=== PATIENT | male | born 1940 | race Caucasian/White ===

== ENCOUNTER → 2018-07-11 | Outpatient (CLI) | payer OTHER ==
[~2018-07-11] MED LIST: AMLODIPINE BESY10 MG PO; BRINTELLIX10 MG PO; CENTRUM SILVER1 EAC2 PO; FLOMAX0.4 MG PO; GABAPENTIN 100100 MG PO; INDAPAMIDE2.5 MG PO; LISINOPRIL20 MG PO; MELATONIN5 M1 PO
== END | disposition home or self-care (01) ==
LOC: CANPRESDC → OR 05:39 → TBA 05:39 → PAC 07:00 → OR 07:53 → TBA 14:27 → CANCEL 14:27 → OR 14:27 → EDSTATUS 14:59
DX: C44.1192 Basal cell carcinoma of skin of left lower eyelid, including canthus (principal); Z53.8 Procedure and treatment not carried out for other reasons; I10 Essential (primary) hypertension; F32.9 Major depressive disorder, single episode, unspecified; F41.9 Anxiety disorder, unspecified; Z85.46 Personal history of malignant neoplasm of prostate; Z87.891 Personal history of nicotine dependence; Z98.890 Other specified postprocedural states; Z79.899 Other long term (current) drug therapy

== ENCOUNTER 2018-08-01 05:39 | Day surgery (SDC) | payer OTHER ==
[~2018-08-01] VITALS: Ht 180.3 cm; Wt 93.0 kg
--- NOTE | ~2018-08-01 | O ---
[facility] [place] [address] OPERATIVE REPORT Name: SIMONLESLIE Room #: 150-5 [facility]..#: [id number] Admission: 08/01/18 ������������������ Attend Phys: Nile Pink MD Discharge: ������������������ Date of : 42 Report #: [id number] THIS REPORT FOR: //name// CC: HARSHAL Pink DATE OF SERVICE: 08/01/2018 PREOPERATIVE DIAGNOSIS: Basal cell carcinoma of left lower lid lateral canthus and cheek. POSTOPERATIVE DIAGNOSIS: Basal cell carcinoma of left lower lid lateral canthus and cheek. PROCEDURE: Excision of basal cell carcinoma of left lower lid lateral canthus and cheek with musculocutaneous flap repair of defect based on the temporalis muscle. SURGEON: Nile Pink M.D. FUNDRAISING DIRECTOR: None. ANESTHESIA: MAC. COMPLICATIONS: None. INDICATIONS FOR SURGERY: This pleasant 78-year-old gentleman has a relatively atypical appearing basal cell carcinoma that has been biopsy proven involving his lateral canthus, his lower lid and his cheek. The lesion does not look like a classic basal cell carcinoma and its margins are particularly ill-defined. He presents today for excision of this lesion with frozen sections and subsequent repair of that ensuing defect. Informed consent was obtained to include but not limited to the potential risk for loss of vision, bleeding, infection, failure to improve the problem, the potential need for further surgery or treatment. DESCRIPTION OF PROCEDURE: The patient was taken to the operating room where 2% Xylocaine with epinephrine mixed with equal parts of 0.75% Marcaine with Wydase was administered transcutaneously and transconjunctivally to the left lower lid, the left lateral canthus, the infratemporal fossa, the cheek and the lip on the left side of his face. The patient was subsequently prepped and draped in the usual sterile fashion. A fine tip skin marking pen was then utilized to outline the lesion in its entirety, starting from the lid margin. This involved tissue that went all the way down to the superior border of his lip across the malar eminence. The incisions were then made perpendicularly across the eyelid margin [address] [address] OPERATIVE REPORT Name: LESLIE SIMON Room #: 150-5 [facility] M..#: [id number] Admission: 08/01/18 ������������������ Attend Phys: Nile Pink MD Discharge: ������������������ Date of : 41 Report #: [id number] and drawn down to a point above his lip. Hemostasis was achieved with diligent pinpoint monopolar cautery, relatively brisk bleeding ensued with an incision of that size. The specimen was then oriented on a drawing for the waiting pathologist. She snap froze that specimen and returned and advising that she was not confident that we were clear medially or laterally. She requested an entire recut of the entire wound. Several additional millimeters were then taken medially across the stump of the lid down into the cheek and then to the upper portion of the lip. An additional similar piece of tissue was then taken laterally, which took out the entire lateral canthus and extended back into the temporalis fossa. The specimens were then oriented on a drawing for the pathologist as hemostasis was once again re-achieved in the field. She snap froze that tissue and examined it under the microscope and at this point in time, felt that our margins were clear. The defect was much larger than what it originally been anticipated, although this was within the realm of possibility and discussed with the patient. The decision was made to use a musculocutaneous flap based on the temporalis muscle rather than a Martino graft because of the extension of the wound down into the cheek and lip. The area was then widely undermined laterally into the temporalis muscle and the flap developed. The relaxing incision was made supratemporally to allow the muscle to be rotated inferomedially. Hemostasis was then re-achieved. The musculocutaneous flap was then advanced and secured with multiple interrupted layers of 5-0 Vicryl suture to ensure they took tension off the more superficial closure. The tarsal plate was reapproximated more superiorly with 5-0 Vicryl sutures to the temporalis muscle laterally. The eyelid margin was reapproximated with interrupted 7-0 Vicryl sutures, which sylvie it out to the lateral most portion of the lid. The skin was then closed with interrupted Vicryl sutures buried and then 6-0 plain gut sutures more superficially. The wound was then cleaned and dressed with erythromycin ophthalmic ointment. The patient subsequently transported to the recovery area having tolerated the procedure well with no anesthetic or operative complications being noted. ��������������������������������������������� ���������������������������������������� By: ��������������������������������������������� 0921 1211 Nile Pink MD /nt
[2018-08-01 07:26] VITALS: BP 145/75
--- NOTE | 2018-08-02 16:06 | PATH ---
[facility] [place] [address] PATHOLOGY RPT PROCEDURE Name: LESLIE SIMON Room #: DEP [facility]..#: [id number] ������������������ Admission: 08/01/18 ������������������ Date of : 41 Discharge: 08/01/18 Report #: [id number] Path Case #: [id number] [facility] Accession Number: [id number] . 01 Material submitted: . PART A: LEFT LOWER LID BCCA PART B: LEFT LOWER LID MEDIAL MARGIN PART C: LEFT LOWER LID LATERAL MARGIN . 01 Clinical history: . BCCA left lower lid . 02 Diagnosis: A. Skin, left lower lid BCCA, excision: - BASAL CELL CARCINOMA X2, ONE AT SUPERIOR END AND THE OTHER AT THE INFERIOR END. - Margins of resection free of malignancy. . B. Skin, medial margin, excision: - Negative for malignancy. - Seborrheic keratosis. . C. Skin, lateral margin, excision: - Negative for malignancy. - Actinic keratosis. (IUV:erum; 08/02/2018) QMS/08/02/2018 . 02 Comment: The original excision "left lower lid BCCA" showed basal cell carcinoma with retraction artifact towards the both ends of the specimen. For this reason, the medial as well as lateral margins on the frozen section slides appeared artifactually positive (false positive). The margins are; however, negative and the same was discussed with Dr. Pink at the time of the surgery, intraoperatively on 08/01/2018. . (IUV:erum; 08/02/2018) . 02 Electronically signed: . Aleida Man MD, Pathologist NPI- [id number] . 01 Gross description: . A. Received fresh from the OR labeled with the patient's name, and "left lower lid basal cell carcinoma" and consists of a thin strip of skin measuring approximately 2.9 x 0.5 x 0.5 cm. The superior to lateral to inferior margin is inked black, the inferior half of the medial margin is [address] [address] PATHOLOGY RPT PROCEDURE Name: LESLIE SIMON Room #: DEP [facility].#: [id number] ������������������ Admission: 08/01/18 ������������������ Date of : 41 Discharge: 08/01/18 Report #: [id number] Path Case #: [id number] inked blue and the superior half of the medial margin is inked green. The superior end of the specimen as well as the deep margin are tagged with an orange ink. At this point the specimen is serially sectioned into multiple fragments and submitted for frozen section entirely as FSA1, this is subsequently submitted for permanent sections as A1. . B. Received fresh from the OR labeled with the patient's name, and "medial margin" and consists of a 2.6 x 0.3 x 0.3 cm oriented strip of skin with the true margin facing up. The en face margin is submitted for frozen section as FSB1, this is subsequently submitted for permanent sections as B1. . C. Received fresh from the OR labeled with the patient's name, and "lateral margin" and consists of a thin strip of skin measuring approximately 2.9 x 0.3 x 0.3 cm. The specimen is oriented with the en face (true margin) facing up. This en face margin is submitted for frozen section as FSC1, subsequently submitted for permanent sections as C1. (IUV:pit 08/01/2018) . . FROZEN SECTION DIAGNOSIS: (Dr. Aleida Man) . FSA1: Skin, left lower lid BCCA, excision: - Two squamoproliferative lesions identified, one at the superior and one at the inferior end present at medial and lateral margins. . FSB1: Skin, medial margin, excision: - Negative for invasive carcinoma on frozen section slides (en face margin). . FSC1: Skin, lateral margin, excision: - Negative for invasive carcinoma on FS slide (en face margin). . . These findings are discussed with Dr. Nile Pink in OR 6 at [facility] and a written report is placed in the patient's chart. . (IUV:pit 08/01/2018) . Frozen section performed at [facility], [address] [place] [address] , [place] [address]. /QTP . 02 Pathologist provided ICD-10: C44.1192, L82.1, L57.0 . 02 CPT . [address] [address] PATHOLOGY RPT PROCEDURE Name: LESLIE SIMON Room #: DEP [facility].#: [id number] ������������������ Admission: 08/01/18 ������������������ Date of : 42 Discharge: 08/01/18 Report #: [id number] Path Case #: [id number] Specimen Comment: A courtesy copy of this report has been sent to Specimen Comment: [phone], . Specimen Comment: Report sent to / DR RICHARD Performed at: [address] [facility] [address], [place] [id number] MD Michel Davies MD Phone: [phone] Performed at: [address] [facility] [address] [id number] MD Aleida Man MD Phone: [phone]
== END 2018-08-01 10:05 | disposition home or self-care (01) ==
LOC: OR 05:39 → TBA 05:40 → OR 08:46
DX: C44.1192 Basal cell carcinoma of skin of left lower eyelid, including canthus (principal); F41.9 Anxiety disorder, unspecified; F32.9 Major depressive disorder, single episode, unspecified; Z87.891 Personal history of nicotine dependence; I10 Essential (primary) hypertension; Z98.890 Other specified postprocedural states; Z85.46 Personal history of malignant neoplasm of prostate
CPT/HCPCS: 50010; 50101; 50386; 50398; 51636; 56528; 56531; 62110; 62850; 70005

== ENCOUNTER 2021-02-28 18:23 | Inpatient (IN) | payer OTHER ==
[~2021-02-28] VITALS: Ht 182.9 cm; Wt 88.7 kg
--- NOTE | ~2021-02-28 | EMS ---
[place] [address] EMS Patient Care Report Name: LESLIE SIMON Room #: REG DIANA Alfaro#: [id number] Admission: 02/28/21 Attend Phys: Discharge: Date of : 41 Report #: [id number] THIS REPORT FOR: //name// Report Transmitted: 02/28/2021 18:22 EMS Care Summary [place], [place]/[facility] Incident [id number] @ 02/28/2021 17:47 Incident Location [address] [place] [address] Patient LESLIE SIMON Male, 80 Years 1940 Patient Address [address] [place] [address] Patient History Bone Cancer,Prostate Cancer, Patient Allergies No known allergies, Patient Medications Unknown, Chief Complaint altered mental status Disposition Transported No Lights/[place] Dispatch Reason Sick Person Transported To [facility] Narrative M36 dispatched on a sick person. M36 arrived to home to find PT laying supine on kitchen floor with P37 at PT side. PT stated right hip pain as chief complaint. PT answered A&O questions correctly with pause. PT pelvis stable upon palpation, but right leg shortened and externally [place] [address] EMS Patient Care Report Name: LESLIE SIMON Room #: REG DIANA Alfaro#: [id number] Admission: 02/28/21 Attend Phys: Discharge: Date of : 41 Report #: [id number] [place] Scraper Hand SEPARATOR OPERATOR by P37. PT carried out of home and placed on stretcher by fire and EMS. PT secured with seatbelts. PT provided surgical mask. Calling republican stated he had been unable to reach PT for two whole days. PT stated he had been "scooting around the house on my butt since Sunday." PT stated [facility] PT stated "they had two events recently and I think it was rabbit racing." PT denied pain outside of right hip. PT stated "I have been having weird dreams and I don't know if it is from my brother passing away two weeks ago or not." PT vitals monitored during transport. PT report given. PT moved to hospital bed via two person sheet lift by EMS. PT care and belongings transferred to ER staff at [facility] without incident. M36 placed back in service. Initial Vitals @18:13P: 90,R: 18,BP: 114/62,Pain: 4/10,GCS: 15,SpO2: 98,Revised Trauma: 12, @18:19P: 88,R: 14,BP: 118/72,Pain: 4/10,GCS: 15,CO: 0,SpO2: 96,Revised Trauma: 12, @17:59P: 92,R: 16,BP: 156/76,Pain: 4/10,GCS: 15,Glucose: 107,SpO2: 95,Revised Trauma: 12, Assessments @18:05MENTAL:Person Oriented,Place Oriented,Time Oriented,SKIN:Pale,HEENT:Head/Face: Drainage,LUNG SOUNDS:ABDOMEN:PELVIS//GI:Pelvis Other,EXTREMITIES:Right Leg: Other,PULSE:Radial: 2+ Normal,NEURO:Other, Impression Injury of Hip Procedures @17:55 ALS Assessment Response: UnchangedSucceeded @17:55 Stretcher Response: Unchanged @18:08 IV Therapy - Saline Lock 0cc (20 ga) Site: Hand-Left Response: UnchangedFailed Timeline 17:44,Call Received 17:44,Dispatch Notified 17:47,Dispatched 17:47,En Route 17:54,On Scene 17:55,At Patient 17:55,ALS Assessment,Response: UnchangedSucceeded, 17:55,Stretcher,Response: Unchanged 17:59,BP: 156/76 M,PULSE: 92,RR: 16 R,SPO2: 95 Ox,ETCO2: ,B,PAIN: 4,GCS: [address] [address] EMS Patient Care Report Name: LESLIE SIMON Room #: REG [facility].#: [id number] Admission: 02/28/21 Attend Phys: Discharge: Date of : 42 Report #: [id number] 15, 18:08,IV Therapy - Saline Lock 0cc 20 ga Site: Hand-Left,Response: UnchangedFailed, 18:12,Depart Scene 18:13,BP: 114/62 M,PULSE: 90,RR: 18 R,SPO2: 98 Ox,ETCO2: ,BG: ,PAIN: 4,GCS: 15, 18:19,BP: 118/72 M,PULSE: 88,RR: 14 R,SPO2: 96 Ox,ETCO2: ,BG: ,PAIN: 4,GCS: 15, 18:26,At Destination 18:45,Call Closed Disclaimer v1.1 Copyright 2020 [employer] This EMS Care Summary contains data elements from the applicable legal record (which may be displayed differently). It is designed to provide pertinent information for the following purposes: continuity of care, clinical quality, and state data reporting. The complete legal record is available to ED staff and administrators of the receiving hospital in [employer] Patient Tracker. All data is provided "as is."
[2021-02-28 18:35] VITALS: BP 118/61
[2021-02-28 19:30] LABS: ABSOLUTE NEUTROPHILS 5.5 thou/uL (1.4-8.2); BASOPHILS 0.4 % (0.0-2.0); EOSINOPHILS 0.7 % (0.0-3.0); HEMATOCRIT 36.4 % (42.0-52.0); LYMPHOCYTES 7.7 % (24.0-44.0); MCH 28.5 pg (26.0-34.0); MCHC 33.1 g/dL (28.0-37.0); MCV 86.1 fL (80.0-100.0); PLATELET COUNT 150 thou/uL (150-400); POLYS 82.2 % (36.0-66.0); RBC 4.23 mil/uL (4.50-6.00); RDW 17.3 % (10.5-14.5); WBC 6.7 thou/uL (4.0-11.0)
[2021-02-28 19:48] LABS: CALCIUM 9.5 mg/dL (8.5-10.1); CREATININE 0.9 mg/dL (0.7-1.3); POTASSIUM 3.4 mmol/L (3.5-5.1)
[2021-02-28 20:10] LABS: ALBUMIN 3.7 g/dL (3.4-5.0); TOTAL BILIRUBIN 1.3 mg/dL (0.2-1.0)
[2021-02-28 20:42] LABS: URINE BILIRUBIN NEGATIVE (Negative); URINE BLOOD 3+ (Negative); URINE CLARITY CLEAR; URINE COLOR YELLOW; URINE GLUCOSE-RANDOM* NEGATIVE (Negative); URINE KETONES 1+ (Negative); URINE LEUKOCYTES-REFLEX NEGATIVE (Negative); URINE NITRITE-REFLEX NEGATIVE (Negative); URINE PROTEIN (DIPSTICK) TRACE (Negative); URINE SPECIFIC GRAVITY 1.025 (1.005-1.035); URINE UROBILINOGEN 0.2 E.U./dl (0.2-1.0)
[2021-02-28 21:15] LABS: CASTS None Seen /LPF (None Seen); SQUAMOUS 0-3 Few /LPF (0-3)
[2021-02-28 21:16] LABS: BACTERIA-REFLEX 1-9 Few /HPF (None Seen); CRYSTALS None Seen /LPF (None Seen); URINE RBC >20 Many /HPF (NONE SEEN); URINE WBC-REFLEX 0-5 Rare /HPF (0-5)
[2021-02-28 22:11] VITALS: BP 164/69
[2021-02-28 23:16] VITALS: BP 177/82
--- NOTE | 2021-03-01 05:36 | NUR ---
new admission d/t fall at home. patient lives alone. patient aox2 confused and forgetfyl. patient was not able to participate with assessment d/t cognitive status. pain controlled this shift. fall precaution in place. patient in bed asleep at this time breathing regular and unlaboured.
[2021-03-01 05:47] LABS: ALBUMIN 3.1 g/dL (3.4-5.0); CALCIUM 8.5 mg/dL (8.5-10.1); CREATININE 0.7 mg/dL (0.7-1.3); DIRECT BILIRUBIN 0.2 mg/dL (<0.1-0.2); POTASSIUM 3.3 mmol/L (3.5-5.1); TOTAL BILIRUBIN 0.9 mg/dL (0.2-1.0); TOTAL PROTEIN 5.4 g/dL (6.4-8.2)
[2021-03-01 05:49] LABS: HEMOGLOBIN 10.9 gm/dL (14.0-18.0)
[2021-03-01 05:51] LABS: HEMATOCRIT 31.4 % (42.0-52.0); MCH 29.9 pg (26.0-34.0); MCHC 34.7 g/dL (28.0-37.0); MCV 86.1 fL (80.0-100.0); RBC 3.65 mil/uL (4.50-6.00); RDW 17.5 % (10.5-14.5); WBC 10.4 thou/uL (4.0-11.0)
[2021-03-01 10:23] LABS: OBSERVED RETIC COUNT 2.19 % (0.6-2.6)
[2021-03-01 10:26] LABS: % SATURATION 17 % (20-39); IRON 38 ug/dL (65-175); TIBC 225 ug/dL (250-450)
[2021-03-01 10:53] LABS: FOLIC ACID 15.3 ng/mL (8.6-58.9)
--- NOTE | 2021-03-01 16:59 | NUR ---
PT ADMITTED RELATED TO RHABDOMYLYSIS, FALL, LACTIC ACIDOSIS. CM REVIEWED CHART AND SPOKE WITH CARE TEAM. CM MET WITH PT AND NEPHEW BILLIE SIMON AT BEDSIDE THIS DAY. PT DIDN'T PARTICIPATE IN ASSESSMENT UNTIL HIS CAT WAS SPOKEN ABOUT THEN HE PERKED UP. NEPHEW INDICATED THAT PT RESIDES IN A RANCH STYLE HOUSE ALONE WITH 2 STEPS TO ENTER THROUGH GARAGE AND 2 FROM FRONT. PT HAD USED A FWW TO ASSIST WITH MOBILITY TIMBER SELECTOR. NEPHEW INDICATED NO PRIOR HH HX. PT SEEN AT [facility] PCP DR. HILARY VAZQUEZ. NO SNF HX. PT'S NEPHEW AND KAYLYNN RUIZ INVOLVED . CM PROVIDED SNF LIST FOR REVIEW FOR LIKELY POST ACUTE CARE STAY. CM FOLLOWING REGARDING DC PLANNING.
[2021-03-01 19:41] VITALS: BP 143/75
--- NOTE | 2021-03-01 20:28 | NUR ---
Assumed pt care this am vs stable, pt is alert to self. Went down for a CT. Complained of pain in the buttocks, managed with medications, was asleep for most of the shift. Pt is a max assists and does not follow instructions. Niece and nephew came to visit, as per niece nephew claims to have DPOA documentation, requested for a copy. FC in place draining dark yellow with a tinge of red. POC followed, pain managed with medications as per emar. Endorsed to the night nurse, small freq feedings recommended.
--- NOTE | 2021-03-02 05:14 | NUR ---
CARE ASSUMED AT 1900 PATIENT WAS IN BED ASLEEP,PATIENT ENCOURAGED TO EAT DINNER AND PATIENT ATE 50%.PATIENT AOX1 CONFUSED AND FORGETFUL. PATIENT WAS AGITATED THIS SHIFT AT AROUND 0100, AND DELUSIONAL,CALLED DRUGLESS PHYSICIAN NEW ORDER OF HALDOL GIVEN. FALL PRECAUTION IN PLACE. PATIENT IN BED ASLEEP AT THIS TIME BREATHING REGULAR AND UNLABOURED.
[2021-03-02 05:35] VITALS: BP 159/61
--- NOTE | 2021-03-02 07:13 | HC ---
[facility] [place] [address] [place] [address] CONSULTATION Name: LESLIE SIMON Room #: 461-P ADM IN M.R.#: [id number] Admission: 02/28/21 Attend Phys: Peter Momin MD Discharge: Date of : 41 Report #: [id number] THIS REPORT FOR: cc: Tyson Montiel MD, Thomas P. MD McKittrick, Richard James MD ~ cc: Loretta Cho MD, Tyson Montiel MD REASON FOR CONSULTATION: Prostate cancer. HISTORY OF PRESENT ILLNESS: The patient is a 80-year-old male who was brought in from home after falling unwitnessed. Some of the history is provided by his niece states he was in the room. The patient as best we can tell may have been diagnosed with prostate cancer, maybe 12 years ago, maybe had radiation therapy only. It sounds like he might have been diagnosed recurrent about 2 years ago. It sounds like he recognizes the pill Xtandi, which is an antihormone therapy type of pill. It sounds like he recognized [place] [facility]. After visit SHOWER SCREEN INSTALLER with urology service clarified that pt sees Dr. Aleksandr Gregorio. She reports that the patient is on firmagon (lupron like drug), abiraterone (zytiga). Pt has appat with [facility] 03/10/21. We will try to get records from them. We will also check the [facility] and also Dr. Devyn Montiel. We will check a PSA. Unclear at this time whether he has had progression or not. Note that a recent right leg film appears to show a change in the right femur. Before we order a bone scan, we will see whether they had done when recently at [facility]. The patient denies fevers, chills, nausea, vomiting, but is also slow to answer, not the best historian at this time. Does not like he had any fevers or chills or breathing difficulties. PAST MEDICAL HISTORY: Notable for prostate cancer, but that may be recurrent. Also, depression, basal cell, kidney stones, hyperlipidemia, hypertension. Also had surgeries with tonsillectomy, adenoidectomy teeth extraction. 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 No tobacco use. No recent alcohol. He has recently lived by himself. FAMILY HISTORY: Noncontributory. MEDICATIONS: Here in the hospital currently include famotidine 20 b.i.d., tramadol 50 q. 6 hours p.r.n., Tylenol p.r.n., Zofran p.r.n. PHYSICAL EXAMINATION: GENERAL: The patient appears his stated age. [facility] [address] [place] [address] CONSULTATION Name: LESLIE SIMON Room #: 461-P [facility] IN M.R.#: [id number] Admission: 02/28/21 Attend Phys: Peter Momin MD Discharge: Date of : 41 Report #: [id number] VITAL SIGNS: Height is 6 feet or 182.88 cm, weight 196.8 pounds or 89.3 kilograms. Blood pressure 177/82, O2 sat 97%, respirations 17, pulse 87, temperature 97.6. Edentulous. HEENT: Face is symmetric. The patient is slow to answer and also maybe a hearing issue, it is hard to tell. Also, has a dry mouth. LUNGS: Clear with symmetric expansion. HEART: Regular rate. LYMPHATIC: No enlarged lymph nodes in the supraclavicular, cervical, axillary or inguinal region. ABDOMEN: Slightly obese. No organomegaly. EXTREMITIES: Without clubbing, cyanosis or edema. The patient really does not report any pain in his legs at this time, but it sounds like he might have had some discomfort in his right leg when he came in. LABORATORY DATA: Notable for the hemoglobin of 10.9, white count of 10.4. Creatinine of 0.7, AST of 84, alkaline phosphatase 228, albumin 3.1. X-ray of the right femur showed a possible process in the right femur versus Paget's. ASSESSMENT AND PLAN: 1. Probable recurrent/metastatic prostate cancer. We will check PSA. We will try to get records from [facility] and Dr. Devyn Montiel and [facility]. 2. Confusion. We will defer to others. 3. Weakness, rehabilitation services to see. 4. Hypertension. Defer to others. 5. Hyperlipidemia. Defer to others. 6. Nutrition. Defer to others. 7. Elevated liver function tests. We will need to follow serially. 7. Anemia. We will need to follow and repeat and may consider evaluation such as hemoglobin, B12 and folate. Prognosis may be guarded, especially the patient does not have much strong desire to improve. We will follow with you. <ELECTRONICALLY SIGNED> By: Nahun Lizama MD 03/02/21 0713 [id number] Nahun Lizama MD /nt
[2021-03-02 08:00] VITALS: BP 148/67
[2021-03-02] MEDS ORDERED: XTANDI40 MG PO (11:49)
[2021-03-02] MEDS ORDERED: DIAZEPAM 5 MG5 M1 PO (11:51)
--- NOTE | 2021-03-02 15:29 | NUR ---
CM SPOKE WITH PT'S NIECE THIS AM AND INDICATED PT SAW AND RECEOMMENDING POST ACUTE CARE STAY. CM EMAILED HER [facility] SNF LIST THAT CM HAD GIVEN TO NEPHEW BILLIE YESTERDAY. PT IN RESTRAINTS FOR TRYING TO PULL OUT ELIZALDE AND IV. CM NOTIFIED NEPHEW AND VISITED WITH HIM HERE AT BEDSIDE WELL. CM FOLLOWING REGARDING DC PLANNING.
[2021-03-02 16:57] VITALS: BP 181/72
--- NOTE | 2021-03-02 18:26 | NUR ---
Assumed pt car at 7am. Assessment completed.vss. pt in and out of bed for activities.Am meds given and well tolerated. Pt family here early this shift, updates given.Around 1130,pt was agitated and combative.Pulled piv out and making attempt to dc'd morgan catheter.2rns in room trying to calm pt down but not successful. Security called for assistance. Dr Guzman notified. Haldol im given without positive result. Bilateral soft wrist restraint applied. Nsg greenskeeper supervisor notified.Will continue to monitor.
[2021-03-02 20:21] VITALS: BP 154/69
[2021-03-02 23:06] LABS: TESTOSTERONE* < 3 ng/dL (264-916)
[2021-03-03 00:51] VITALS: BP 177/86
--- NOTE | 2021-03-03 02:04 | NUR ---
Assumed pt care at 1900. A/OX2,confused,agitated and combative at shift change,pulling himself off restraints and grabbing on the morgan;required 3 staff members to rescue it. Medicated with Haldol with some relief relief noted. Niece visited at HS. C/o back pain,medicated per EMAR and effective. Attempts to pull on morgan when released on 2hr check, skin intact. Morgan to DD with yellow urine observed. Fall precautions in place,resting quietly w/o any distress will continue to monitor pt. SR on telemetry.
[2021-03-03 04:57] VITALS: BP 162/56
[2021-03-03 05:43] LABS: MCH 29.3 pg (26.0-34.0); MCHC 34.6 g/dL (28.0-37.0); MCV 84.6 fL (80.0-100.0); RBC 3.08 mil/uL (4.50-6.00); RDW 17.2 % (10.5-14.5); WBC 3.5 thou/uL (4.0-11.0)
[2021-03-03 06:10] LABS: CALCIUM 8.4 mg/dL (8.5-10.1); CREATININE 0.7 mg/dL (0.7-1.3)
[2021-03-03 06:32] LABS: POTASSIUM 2.6 mmol/L (3.5-5.1)
[2021-03-03 07:38] VITALS: BP 178/77
--- NOTE | 2021-03-03 15:46 | NUR ---
PT WAS TAKEN OUT OF RESTRAINTS THIS AM. CM MET WITH PT AT BEDSIDE THIS AM AND ASKED ABOUT WHO HE WOULD WANT TO ELECT DPOA. PT SEEMED CLEARER THIS AM AND INDICATED THAT HE HAD SPOKEN WITH PHYSICIAN ABOUT THAT THIS AM BUT THAT HE HADN'T MADE A DECISION YET. CM EXPLAINED HC DPOA A LITTLE MORE AND INDICATED THAT CM WOULD FOLLOW UP. CM SPOKE WITH PT'S NISALUD RUIZ IN PERSON THIS AFTERNOON AND SHE INDICATED THAT AT THIS TIME [facility] WAITE WOULD BE SELECTING SKILLED FACILITY TO SEND REFERRALS TO. CM TO REACH OUT TO BILLIE TO ASK WHERE TO SEND REFERRALS. PT WILL NEED TO BE OUT OF RESTRAINTS FOR 24HRS PRIOR TO DC. CM FOLLOWING REGARDING DC PLANNING.
--- NOTE | 2021-03-03 18:31 | NUR ---
Assumed pt care this am vs stable. Pt is alert x 2 and forgetful, FC in place draining. REceived with restraints, released as scheduled, dc restrained pt was cooperative and not pulling lines. Max assists with a gait belt and a alker, stayed on the chair for most fo the day. Family at the bed side. POC followed with no signs or verbalizations of distress noted. Endorsed to the night nurse.
[2021-03-03 19:49] VITALS: BP 189/95
--- NOTE | 2021-03-04 02:18 | NUR ---
Assumed pt care at 1900. A/Ox2,impulsive,pulling on lines/tubes medicated per EMAR with relief noted after some time. Pt repeatedely states he wants to go home,reorientation done and eventually pt calm down and went to sleep. Valenzuela in place with yellow urine in bag. IVF infusing w/o problems. SR on telemetry. Fall precautions in place,frequent checks on pt. Will continue to monitor pt.
[2021-03-04 05:08] VITALS: BP 153/83
[2021-03-04 06:03] LABS: HEMATOCRIT 26.9 % (42.0-52.0); HEMOGLOBIN 9.1 gm/dL (14.0-18.0); MCH 28.8 pg (26.0-34.0); MCHC 33.9 g/dL (28.0-37.0); MCV 85.1 fL (80.0-100.0); RBC 3.16 mil/uL (4.50-6.00); RDW 16.7 % (10.5-14.5); WBC 2.9 thou/uL (4.0-11.0)
[2021-03-04 06:56] LABS: CALCIUM 8.4 mg/dL (8.5-10.1); CREATININE 0.7 mg/dL (0.7-1.3)
[2021-03-04 06:58] LABS: POTASSIUM 2.9 mmol/L (3.5-5.1)
--- NOTE | 2021-03-04 14:58 | NUR ---
CM MET WITH PT AT BEDSIDE THIS AM AND DISCUSSED DPOA AND AGAIN PT DIDN'T DESIGNATE WHO HE WOULD WANT TO HELP MAKE MEDICAL DECISIONS IF HE WASN'T ABLE TO DO SO. KERRI GARCÍA MET WITH PT AND HE WASN'T ABLE TO GET PT TO DESIGNATE ANYONE EITHER. CM SPOKE WITH PT'S NEPHEW BILLIE AND HE ASKED THAT REFERRALS BE SENT TO [facility]. CM FAXED REFERRALS. CM SPOKE WIHT PT'S NIECE SARA AND SHE IS ALSO AWARE AND AGREEABLE. CM FOLLOWING REGARDING DC PLANNING. PT BECAME INCREASINGLY AGITATED AND COMBATIVE THIS AFTERNOON AND PT WAS PUT BACK INTO RESTRAINTS. CM FOLLOWING.
[2021-03-04 17:29] VITALS: BP 175/74
--- NOTE | 2021-03-04 20:07 | NUR ---
Assumed pt care in the am vs stable. Became aggitated in the afternoon insisting he wanted to go home and help from us to get him there to see his cat Michelle. Pt pulled out IV and had his morgan line twisted around. Security was called to help safely place the pt back in bed. MD informed restraint orders in place (soft bilateral wrist) FC removed as per MD order. POC followed, IV restarated in the left UA. Potassium was replaced this am, blood draw was late came back 3.1, informed night nurse.
[2021-03-04 20:57] VITALS: BP 179/82
--- NOTE | 2021-03-05 03:49 | NUR ---
Pt. rested quietly during the night when checked on during frequent rounds. He c/o left leg pain and po pain med given (see emar) with relief noted. Pt. has been cooperative with cares. Valenzuela catheter inserted without difficulty due to urinary retention. Bed alarm is on and patient remains in restraints and protocal followed. K+ was also replaced this shift and will await am lab results.
[2021-03-05 04:13] VITALS: BP 179/74
[2021-03-05 07:36] VITALS: BP 176/75
[2021-03-05 08:19] LABS: HEMATOCRIT 31.8 % (42.0-52.0); HEMOGLOBIN 10.6 gm/dL (14.0-18.0); MCH 28.9 pg (26.0-34.0); MCHC 33.4 g/dL (28.0-37.0); MCV 86.3 fL (80.0-100.0); RBC 3.69 mil/uL (4.50-6.00); RDW 17.1 % (10.5-14.5); WBC 3.9 thou/uL (4.0-11.0)
[2021-03-05 08:20] LABS: CALCIUM 8.9 mg/dL (8.5-10.1); CREATININE 0.7 mg/dL (0.7-1.3); POTASSIUM 3.3 mmol/L (3.5-5.1)
[2021-03-05 10:19] VITALS: BP 184/88
[2021-03-05 12:16] VITALS: BP 174/71
--- NOTE | 2021-03-05 14:51 | NUR ---
ASSUMED PT CARE THIS AM. PT A&OX1, MAKES SOME NEEDS KNOWN. PATIENT WITH SOFT WRIST RESTRAINTS ON. PATIENT HAS A ELIZALDE CATHETER IN PLACE, DRAINING YELLOW URINE. FREQUENT CHECKS ON PATIENT INCLUDING CIRCULATION CHECKS AND ASSISTING WITH FEEDING ARE BEING COMPLETED. PATIENT ON ROOM AIR. MEDICATIONS TAKEN WITHOUT ISSUE. IV REMAINS PATENT, FLUIDS INFUSING. PATIENT REMAINS ON TELE. FALL PRECAUTIONS ARE IN PLACE, CALL LIGHT WITHIN REACH.
[2021-03-05 17:50] VITALS: BP 160/104
[2021-03-05 21:00] VITALS: BP 189/97
[2021-03-06] VITALS (7 sets, daily range): BP systolic 147–179; BP diastolic 64–81
--- NOTE | 2021-03-06 01:42 | NUR ---
ASSUMED PT CARE AT 1900.PT WAS ON RESTRAINT WHEN THE SHIFT STARTED.FREQUENT CHECKS AND ASSESSMENT MAINTAINED.PO FLUIDS OFFERED FERQUENTLY.ELIZALDE CATH IN PLACE WITH YELLOW URINE IN THE BAG.PT CONT ON IVF.PT SLEEPING ON HIS BED AT THIS TIME.CALL LIGHT WITHIN REACH.
[2021-03-06 05:52] LABS: HEMATOCRIT 30.1 % (42.0-52.0); HEMOGLOBIN 10.3 gm/dL (14.0-18.0); MCH 28.9 pg (26.0-34.0); MCHC 34.4 g/dL (28.0-37.0); RBC 3.58 mil/uL (4.50-6.00); RDW 16.7 % (10.5-14.5); WBC 4.5 thou/uL (4.0-11.0)
[2021-03-06 06:18] LABS: CALCIUM 8.9 mg/dL (8.5-10.1); CREATININE 0.7 mg/dL (0.7-1.3); POTASSIUM 3.1 mmol/L (3.5-5.1)
--- NOTE | 2021-03-06 17:17 | NUR ---
patient is a/ox1 self only, VSS. More confusion as the day progressed. keeps eyes closed during most interactions with patient but will open eyes on command. continues with soft upper bilateral restraints, new order to continue restraints due to patient pulling and picking at things. Tylenol given for a 99.1 ax temp which was effective. Rash on his back;treatment in place.
[2021-03-07 00:28] VITALS: BP 154/75
[2021-03-07 05:01] VITALS: BP 148/72
--- NOTE | 2021-03-07 07:47 | NUR ---
ASSUMED CARE OF PT AT 1900. PT ASSESSED TO BE AOX1 80M HERE FOR A FALL WITH RHABDO AND LACTIC ACIDOSIS. PT IS IN UPPER RESTRAINTS ON BILATERAL WRIST. STABLE ON RESTRAINTS THROUGHOUT THE NIGHT, CHECKED AT LEAST ONCE AN HOUR. NO SKIN BREAKDOWN, REMOVED MULTIPLE TIMES FOR REST AND ASSESSMENT. PT SLEPT FOR A LARGE PORTION OF THE NIGHT WITH NO VERBALIZED COMPLAINTS. STARTED SEROQUEL RECENTLY AND WAS ABLE TO GET 6-7 HOURS OF SLEEP. ONLY ATTEMPTED TO GET OUT OF BED ONCE. PT CONTINUES TO GRAB AT EVERYTHING AND HAS TRAUMA TO URETHRA FROM PULLING ON ELIZALDE IN LAST FEW DAYS. REMOVED STATLOCK AND REPLACED STAIN MAKER INNER THIGH WITH BAG AT BOTTOM OF BED SO PT WOULD NOT BE ABLE TO RAISE LEGS AND GRAB ELIZALDE. CLEANED UP ELIZALDE AND PENIS WITH WIPES. NO BLOOD NOTED IN URINE. ON FLUIDS THROUGHOUT THE NIGHT, HYDROCORTISONE CREAM APPLIED TO LARGE RASH ON ENTIRE BACK. WILL PASS ON TO DAY SHIFT RN.
[2021-03-07 08:33] VITALS: BP 165/76
--- NOTE | 2021-03-07 14:30 | NUR ---
PT CONTINUES IN RESTRAINTS. PSYC SAW PT AND INDICATED THAT THEY WERE GOING TO START SOME NEW MEDS IN HOPES THAT PT WOULD BE CALMER THIS EVENING AND HOPEFULLY HAVE RESTRAINTS DISCONTINUED. CM FOLLOWING REGARDING DC PLANNING.
--- NOTE | 2021-03-07 15:18 | NUR ---
ASSUMED PT CARE THIS AM. PT A&OX1, MAKES SOME NEEDS KNOWN. PATIENT ELIZALDE IN PLACE DRAINING WELL. PATIENT ON ROOM AIR. IV REMAINS PATENT, FLUIDS INFUSING. PATIENT REMAINS ON TELEMETRY. MEDICATIONS TAKEN WITHOUT ISSUE. RESTRAINTS WERE REMOVED PRIOR TO ORDER EXPIRATION, WILL OBSERVE PATIENT BEHAVIOR FREQUENTLY. FALL PRECAUTIONS ARE IN PLACE, CALL LIGHT WITHIN REACH.
[2021-03-07 20:20] VITALS: BP 154/86
[2021-03-08 04:18] LABS: HEMATOCRIT 29.9 % (42.0-52.0); HEMOGLOBIN 9.9 gm/dL (14.0-18.0); MCH 28.3 pg (26.0-34.0); MCHC 33.3 g/dL (28.0-37.0); RBC 3.52 mil/uL (4.50-6.00); RDW 17.2 % (10.5-14.5); WBC 3.1 thou/uL (4.0-11.0)
[2021-03-08 05:09] LABS: CALCIUM 8.7 mg/dL (8.5-10.1); CREATININE 0.7 mg/dL (0.7-1.3); POTASSIUM 3.5 mmol/L (3.5-5.1)
[2021-03-08 05:31] VITALS: BP 140/70
--- NOTE | 2021-03-08 06:20 | NUR ---
ASSUMED CARE OF PT AT 1900. PT CONTINUES TO BE AOX1 80M WITH FALL AND RHABDO. TODAY, SINCE BEGINNING SEROQUEL REGIMEN PT HAS BECOME MUCH LESS ANXIOUS AND GRABBY. RESTRAINTS HAVE NOT BEEN RENEWED. THROUGHOUT THE NIGHT, PT RESTED IN BED WITH NO COMPLAINTS, VSS. DID NOT PULL ON ELIZALDE THROUGHOUT THE NIGHT. FLUIDS RUNNING, LARGE RASH ON BACK TREATED WITH HYDROCORTISONE. TAKES MEDS WHEN PROMPTED IN APPLESAUCE. WILL CONTINUE TO MONITOR.
[2021-03-08 07:30] VITALS: BP 145/69
[2021-03-08 12:35] VITALS: BP 127/56
--- NOTE | 2021-03-08 13:01 | NUR ---
Nutrition: pt seen for LOS. Admit with falls, rhabdomyolosis. Depression and family had reported poor appetite since recent of brother. Pt eating fairly well in hospital 50-100% of meals and has Ensure ordered TID. Drinks closer to 2/day. Noted stacking up at bedside, will decrease to BID. Pt reports fairly stable weights around 200#. Recent weight 195#. RD reweighed pt on bedscale at 205#. Does not have dentures with him therefore has mechanically altered ground diet ordered. Pt was excited to eat his lunch during visit. On B12 supplementation. Likely need for SNF stay prior to D/C. Low nutrition risk at present.
--- NOTE | 2021-03-08 14:47 | NUR ---
PT HAS REMAINED OUT OF RESTRAINTS SINCE 1400 YESTERDAY 03/07/21. CM FAXED UPDATED CLINICAL INFO TO [facility]. OP CENTER INDCATED THAT HIS CHEMO MEDS MIGHT BE TOO COSTLY TO ADMIT. CM SPOKE WITH PT'S NISALUD ANDERS AND PROVIDED UPDATE. CM TO CALL BILLIE AND LET HIM KNOW WELL. CM FOLLOWING REGARDING DC PLANNING.
[2021-03-08 15:00] VITALS: BP 124/58
--- NOTE | 2021-03-08 16:31 | NUR ---
Assumed pt care this am diet and medications are tolerated well. Alert x 2, always wwanting to see and get his cat Michelle. FC in place draining light yellow urine. Both nephew and niece came to visit the pt. GWEN engle.
[2021-03-08 20:01] VITALS: BP 145/62
[2021-03-09 00:44] VITALS: BP 146/67
[2021-03-09 04:51] VITALS: BP 146/65
--- NOTE | 2021-03-09 06:37 | NUR ---
ASSUMED CARE OF PT AT 1900. PT CONTINUES TO BE AOX1 80M HERE WITH RHABDO POST FALL. PT RESTED THROUGHOUT THE NIGHT WITH NO COMPLAINTS, VSS. EARLY IN THE EVENING TUGGED ON CATHETER 1X AND WAS ABLE TO DISCONNECT FROM DRAINAGE BAG. NIGHT SEROQUEL GIVEN, BAG REATACHED. CRAM APPLIED TO LARGE BACK RASH. FLUIDS INFUSING INTO R ARM. NO FURTHER COMPLAINTS, WILL CONT TO MONITOR.
[2021-03-09 11:30] VITALS: BP 112/59
[2021-03-09 16:30] VITALS: BP 149/59
--- NOTE | 2021-03-09 16:34 | NUR ---
THIS AM PT INDICATED TO CM THAT HE WOULD WANT [facility] TO BE FIRST CONTACT IN THE EVENT SOMETHING SHOULD HAPPEN TO HIM MEDICALLY WHERE HE CAN'T MAKE HIS WISHES KNOW. THIEN WITH [facility] VISITED PT THIS AFTERNOON. CM FAXED THEM UPDATED THERAPY NOTES FOR REVIEW. NUTRITION PROFESSOR MET WITH CM, UC, AND PT AND COMPLETED DPOA DOCUMENT. CM ASKED AGAIN WITH ALL PRESENT WHO HE WOULD WANT TO HELP MAKE MEDICAL DECISIONS ON HIS BEHALF IF HE ISN'T ABLE TO MAKE HIS WISHES KNOWN AND PT AGAIN INDICATED [facility]ARA FIRST CONTACT. BILLIE WAS LISTED SECOND AGENT. DOCUMENT WAS COMPLETED AND NOTERIZED. ORIGINAL AND TWO COPIES WERE LEFT IN PT'S ROOM. COPY PLACED IN CHART AND FAXED TO [facility]. CM FOLLOWING REGARDING DC PLANNING.
[2021-03-09 19:40] VITALS: BP 156/47
--- NOTE | 2021-03-10 04:43 | NUR ---
ASSUMED PT CARE THIS PM. PT IS ALERT AND ORIENTED X2. PT HAS RASHES ON THE VBACK. PT SLEPT THROUGHOUT THE SHIFT. MEDS WERE GIVIEN PER EMAR ORDERS. NO VISIBLE SIGN OF STRESS WAS NOTED. PT IS ON RA. FALL PRECAUTIONS IN PLACE. WILL CONTINUE TO MONITOR.
[2021-03-10 06:21] VITALS: BP 142/65
[2021-03-10 07:30] VITALS: BP 152/69
[2021-03-10 11:30] VITALS: BP 136/71
--- NOTE | 2021-03-10 12:35 | NUR ---
CM FOLLOWED UP WITH [facility] THIS AM AND THEY INDICATED THAT THEY WOULD SUBMIT FOR INSURANCE AUTH TODAY. CM TO FAX UPDATES ONCE ENTERED. CM SPOKE WITH PT'S NIECE AT BEDSIDE THIS AM AND PROVIDED UPDATES. CM CALLED AND NOTIFIED BILLIE THAT DPOA HAD BEEN COMPLETED AND THAT WE WERE AWAITING INSURANCE AUTH FOR ADMISSION AT [facility]. CM SPOKE WITH BILLIE AT BEDSIDE THIS AM WELL. CM FOLLOWING REGARDING DC PLANNING.
[2021-03-10 15:43] VITALS: BP 157/85
--- NOTE | 2021-03-10 18:45 | NUR ---
ASSUMED CARE AT SHIFT CHANGE. PT WALKED WITH THERAPY WITH GOOD ENDURANCE. TURNED PT COULD TOLERATE. Z GUARD TO BUTTOCKS FOR REDNESS. ELIZALDE PLACE LAST NIGHT FOR RETENTION. 1200 OUT IN [place] TODAY. PT HAD GOOD APPETITE FOR BREAKFAST AND DINNER. FEBRILE THIS EVENING AT 100.4- TYLENOL GIVEN. RESTING THIS EVEING WITH NAD. AWAITING AUTH FOR [facility] DC SOON.
[2021-03-10 20:01] VITALS: BP 154/73
[2021-03-11 00:38] VITALS: BP 145/66
[2021-03-11 04:00] VITALS: BP 142/71
--- NOTE | 2021-03-11 04:02 | NUR ---
ASSUMED PT CARE THIS PM. PT IS ALERT AND ORIENTED TO SELF. PT HAS ELIZALDE IN PLACE. PT SLEPT THROUGHOUT THE SHIFT WITH NO EVENT. MEDS WERE GIVEN PER EMAR ORDERS. PT IS RA. FALL PRECAUTIONS IN PLACE. WILL CONTINUE TO MONITOR.
[2021-03-11 07:20] VITALS: BP 140/78
[2021-03-11 11:20] VITALS: BP 135/96
[2021-03-11] MEDS ORDERED: SEROQUEL 25 MG25 M1 PO ×3 (13:00→13:01)
[2021-03-11] MEDS ORDERED: B-12500 MCG PO (13:02)
--- NOTE | 2021-03-11 16:07 | NUR ---
AUTH WAS RECEIVED FOR PT TO DC TO [facility] THIS DAY. CHART COPY MADE. ORDERS FAXED. CM NOTIFIED PT AN DPOA/NIECE AND SHE IS AWARE AND AGREEABLE. VAN ARRANGED FOR 1630 [address] APPRAISER. NURSE TO CALL REPORT. NO OTHER CM INTERVENTION INDICATED. CASE CLOSED.
--- NOTE | 2021-03-11 17:43 | NUR ---
Assumed pt care this am vs stable, alert to self was initially not wanting to take his medications and get out of bed. Niece (Dpoa) at the bedside. POC followed , pain noted on his back medications given as per emar partial relief is noted. Pt would repeatedly ask to see and be with his cat. POC followed. DC orders given, report given to nurse at [facility]. FC kept in place d/t retention, IV removed. Pt is now dc.
== END 2021-03-11 17:48 | DRG 557 ==
LOC: ER 18:23 → 4W 21:20 → EROBS 21:20 → 4W 23:23
PROVIDERS: Hospitalist; Internal Medicine Hematology & Oncology; Nurse Practitioner; Nurse Practitioner Family; Physician Assistant; ADMIT Internal Medicine; ATTEND Internal Medicine
DX: M62.82 Rhabdomyolysis (principal); G93.41 Metabolic encephalopathy; C79.51 Secondary malignant neoplasm of bone; R74.01 Elevation of levels of liver transaminase levels; M25.551 Pain in right hip; R31.9 Hematuria, unspecified; C61 Malignant neoplasm of prostate; Z20.822 Contact with and (suspected) exposure to COVID-19; F32.9 Major depressive disorder, single episode, unspecified; I10 Essential (primary) hypertension; E78.5 Hyperlipidemia, unspecified; N40.0 Benign prostatic hyperplasia without lower urinary tract symptoms; R53.81 Other malaise; R41.0 Disorientation, unspecified; E53.8 Deficiency of other specified B group vitamins; F03.90 Unspecified dementia, unspecified severity, without behavioral disturbance, psychotic disturbance, mood disturbance, and anxiety; D63.8 Anemia in other chronic diseases classified elsewhere; Z85.828 Personal history of other malignant neoplasm of skin; Z85.46 Personal history of malignant neoplasm of prostate; Z92.3 Personal history of irradiation; Z87.442 Personal history of urinary calculi; Z87.891 Personal history of nicotine dependence; W18.39XA Other fall on same level, initial encounter; Y93.89 Activity, other specified; Y92.89 Other specified places as the place of occurrence of the external cause; Y99.8 Other external cause status
CPT/HCPCS: 10045